=== PATIENT | male | born 1980 | race Caucasian/White ===

== ENCOUNTER 2019-01-05 17:02 | Emergency (ER) | payer OTHER ==
[~2019-01-05] VITALS: Ht 175.3 cm; Wt 65.8 kg
[2019-01-05] MEDS ORDERED: LEVETIRACETAM IV 1,000 MG in IV DEXTROSE 5% 100 ML IV ONE (17:30)
[2019-01-05 17:31] LABS: BASOPHILS # (AUTO) 0.1 K/uL (0.0-8.0); BASOPHILS % (AUTO) 1.3 % (0.0-2.0); EOSINOPHILS # (AUTO) 0.1 K/uL (0.0-0.7); EOSINOPHILS % (AUTO) 1.6 % (0.0-7.0); HEMATOCRIT 41.4 % (36.7-47.1); HEMOGLOBIN 14.3 g/dL (12.5-16.3); LYMPHOCYTES # (AUTO) 1.4 K/uL (20.0-40.0); LYMPHOCYTES % (AUTO) 24.9 % (20.5-51.5); MEAN CORPUSCULAR HEMOGLOBIN 29.4 uug (23.8-33.4); MEAN CORPUSCULAR HGB CONC 35 g/dL (32.5-36.3); MEAN CORPUSCULAR VOLUME 85.1 fL (73.0-96.2); MONOCYTES # (AUTO) 0.4 K/uL (2.0-10.0); MONOCYTES % (AUTO) 6.4 % (0.0-11.0); NEUTROPHILS # (AUTO) 3.6 K/uL (1.8-8.9); NEUTROPHILS % (AUTO) 65.8 % (38.5-71.5); PLATELET COUNT (AUTO) 215 K/uL (152-348); RED BLOOD CELL COUNT(AUTO) 4.86 MIL/uL (4.06-5.63); WHITE BLOOD COUNT (AUTO) 5.5 K/uL (3.6-10.2)
[2019-01-05 17:40] LABS: CREATININE 0.7 mg/dL (0.6-1.3); POTASSIUM 4.5 mmol/L (3.5-5.1)
[2019-01-05 17:46] LABS: BILIRUBIN,DIRECT 0.2 mg/dL (0.0-0.2); BILIRUBIN,TOTAL 0.7 mg/dL (0.2-1.0); TOTAL PROTEIN, SERUM 7.9 g/dL (6.4-8.2)
--- NOTE | 2019-01-05 18:07 | NUR ---
SW consultation requested. Patient is a 38 year old male with reports of hx of seizure and unknown development disabilities. Patient was brought in by paramedics due to reports of seizure activity. According to the paramedics, patient had seizures around 4pm at home, called his step-father (Baudilio Avelar [phone]), who in turn called the paramedics. Patient lives alone since the recent passing of his father. Time of passing is unknown, as SW was told by paramedics that father 1 month ago, but patient stated that his father 5 months ago. Patient is alert, oriented, cooperative with SW, however speech is slow. According to Dr. Anderson, patient told him that he stopped taking his seizure medications a while back. Patient stated that he feels his seizure coming on, and lays down. Judgement appears to be fair. Patient stated that he is able to tend to his basic ADL's such as food and bathing, however his family has turned off the stove burners for safety and therefore his food options are limited. According to the patient, his resources are limited, but sometimes his family helps. Sister Abeba [phone], sister Yen [phone], sister Ailyn [phone]. SW attempted to contact patient's sister Abeba and step-father Baudilio, but was unsuccessful. SW was able to connect with patient's sister Yen, who stated that her father Baudilio (patient's step-father) should be coming to the ER to pick patient up. Yen stated that if Baudilio was unable to come to the ER, that she could come by a little bit later. SW to try and contact patient's step-father Baudilio again. SW also to file an APS report due to patient being a disabled adult who lives alone with limited resources.
--- NOTE | 2019-01-05 18:15 | NUR ---
RECEIVED A 38 Y/O MALE PT, VIA AMBUL;ANCE , C/O OF SEIZURES EPISODE. PT IS ALERT OX3, HX OF MENTAL RETARDATION.UPON ARRIVAL CONNECETD TO ECG MONITOR V/S TAKEN , SHOWING SR. 12 ;EAD ECG DONE, IV G20 INSERTED , IV KEPPRA TO BE GIVEN.
[2019-01-05] MEDS ORDERED: LEVETIRACETAM 500 MG/5 ML VIAL IV ONE (18:40)
--- NOTE | 2019-01-05 18:40 | NUR ---
APS report made by this SW. Report # [id number]
--- NOTE | 2019-01-05 18:42 | NUR ---
6:40pm: SW attempted to call patient's step-father again, Baudilio Avelar, . LONI was able to connect with Baudilio, who stated that he will be coming in to pick patient up between 7pm--7:30pm. LONI agreed. LONI informed [facility] Cabral, and both ED doctors, Dr. Anderson and Dr. Arevalo.
--- NOTE | 2019-01-05 18:45 | NUR ---
KEPPRA IV TRANSFUSION STOPPED AND DISCONTINUED.
--- NOTE | 2019-01-05 18:56 | NUR ---
LONI prepared an information handout for [facility] for patient's family. LONI left this information with NGOZI Cabral to provide to the family when they arrive. Copy of the resource that was provided was filed in patient's ED chart. The information included the contact number for [facility] in [place] [phone] and information on the adult programs they offer, which include but are not limited to Adult Day Services, In-Home Services, and Caregiver Services.
--- NOTE | 2019-01-05 19:01 | NUR ---
Due to change of shift, SW provided the resource to mold shifter RN Ahmet to provide to the family when they pick patient up from the ED.
--- NOTE | 2019-01-05 19:17 | NUR ---
PT FOR DISCHARGE, FULL REPORT GIVEN TO NGOZI JIMENEZ
--- NOTE | 2019-01-05 19:23 | NUR ---
Patient discharged to home in stable conditon. Written and verbal after care instructions given. Patient verbalizes understanding of instructions. Pt ambulated out of ER with steady gait, no acute signs of distress, VSS, all belongings taken, to be driven home by stepdad via private vehicle, community services referral on hand.
[2019-01-05 19:24] VITALS: BP 138/83
--- NOTE | 2019-01-12 13:39 | NUR ---
LONI received a voicemail message at 11:18am this morning, left by APS LONI Staley, in response to the APS report this LONI had filed on 01/05/19. LONI called Rebeka back [phone] at 1:35pm, but was unable to connect with her. LONI left Rebeka a voicemail message asking her to call this LONI back.
== END 2019-01-05 19:25 | disposition home or self-care (01) ==
LOC: ER 17:02
DX: G40.909 Epilepsy, unspecified, not intractable, without status epilepticus (principal)
CPT/HCPCS: 36415; 80048; 80076; 82962; 83735; 85025; 93005; 96365; 99284; J1953; J7060; A4663